=== PATIENT | female | born 1990 | race African-American/Black ===

== ENCOUNTER 2017-03-20 20:19 | Emergency (ER) | payer OTHER ==
[~2017-03-20] VITALS: Ht 154.9 cm; Wt 90.7 kg
[2017-03-20 20:30] VITALS: BP 129/90
[2017-03-20] MEDS ORDERED: PRED50TA PO (20:50)
[2017-03-20] MEDS ORDERED: AMOX875T PO (20:50)
--- NOTE | 2017-03-20 20:50 | PHYS DOC ---
Past Medical History Past Medical History: Migraines Past Surgical History: No Surgical History Alcohol Use: None Drug Use: None Adult General Chief Complaint Chief Complaint: SORE THROAT HPI HPI Patient is a 27 year old female who presents with sore throat and bilateral ear pain for 3 days. Patient denies any fever coughing or congestion. Review of Systems Review of Systems Constitutional: See history of present illness Eyes: Denies change in visual acuity, redness, or eye pain [] HENT: sore throat and bilateral ear pain Respiratory: Denies cough or shortness of breath [] Cardiovascular: No additional information not addressed in HPI [] GI: Denies abdominal pain, nausea, vomiting, bloody stools or diarrhea [] : Denies dysuria or hematuria [] Musculoskeletal: Denies back pain or joint pain [] Integument: Denies rash or skin lesions [] Neurologic: Denies headache, focal weakness or sensory changes [] Endocrine: Denies polyuria or polydipsia [] Allergies Allergies Allergies Coded Allergies Type Severity Reaction Last Updated Verified No Known Drug Allergies 12/14/13 No Physical Exam Physical Exam Constitutional: Well developed, well nourished, no acute distress, non-toxic appearance. [] HENT: Normocephalic, atraumatic, bilateral external ears normal, oropharynx moist, no oral exudates, nose normal. [] +2 tonsils with mild erythema and mild exudate bilaterally, midline uvula. +2 anterior cervical adenopathy Bilateral TM are mildly injected. Eyes: PERRLA, EOMI, conjunctiva normal, no discharge. [] Neck: Normal range of motion, no tenderness, supple, no stridor. [] Cardiovascular:Heart rate regular rhythm, no murmur [] Lungs & Thorax: Bilateral breath sounds clear to auscultation [] Abdomen: Bowel sounds normal, soft, no tenderness, no masses, no pulsatile masses. [] Skin: Warm, dry, no erythema, no rash. [] Back: No tenderness, no CVA tenderness. [] Extremities: No tenderness, no cyanosis, no clubbing, ROM intact, no edema. [] Neurologic: Alert and oriented X 3, normal motor function, normal sensory function, no focal deficits noted. [] Psychologic: Affect normal, judgement normal, mood normal. [] Current Patient Data Vital Signs Vital Signs Date Time Temp Pulse Resp B/P (MAP) Pulse Ox O2 Delivery O2 Flow Rate FiO2 03/20/17 20:30 98.7 82 16 99 Room Air 98.7 EKG EKG [] Radiology/Procedures Radiology/Procedures [] Course & Med Decision Making Course & Med Decision Making Pertinent Labs and Imaging studies reviewed. (See chart for details) Patient has bilateral otitis media and tonsillitis. Discharged with amoxicillin. Tylenol/Motrin for pain or fever. Dragon Disclaimer Dragon Disclaimer This electronic medical record was generated, in whole or in part, using a voice recognition dictation system. Departure Departure Impression: Primary Impression: Acute tonsillitis Additional Impression: Otitis media Disposition: HOME, SELF-CARE Condition: STABLE Referrals: NON,STAFF (PCP) Follow-up with your doctor in 1-2 weeks Patient Instructions: Otitis Media, Adult, Tonsillitis, [id number] Additional Instructions: You were seen for otitis media and tonsillitis. Ensure you complete your antibiotics. We also sent you home with prednisone, it's going to help with the swelling and inflammation. Take Tylenol every 4 hours and Motrin every 6 hours as needed for pain or fever. Follow-up with your doctor in one week. Come back to the ED if symptoms worsen. Scripts Prednisone (PREDNISONE) 50 Mg Tablet 1 TAB PO DAILY, #5 TAB Prov: JACQUELINE ROGERS APRN 03/20/17 Amoxicillin (AMOXICILLIN) 875 Mg Tablet 1 TAB PO BID, #20 TAB Prov: JACQUELINE ROGERS [employer]PER[employer] 03/20/17 Problem Qualifiers Primary Impression: Acute tonsillitis Pharyngitis/tonsillitis etiology: unspecified etiology Qualified Codes: J03.90 - Acute tonsillitis, unspecified Additional Impression: Otitis media Otitis media type: other nonsuppurative Chronicity: acute Laterality: bilateral Recurrence: not specified as recurrent Qualified Codes: H65.193 - Other acute nonsuppurative otitis media, bilateral JACQUELINE ROGERS [employer]PER[employer] Mar 20, 2017 20:50
== END 2017-03-20 20:53 | disposition home or self-care (01) ==
LOC: ER 20:19
DX: J03.90 Acute tonsillitis, unspecified (principal); H65.193 Other acute nonsuppurative otitis media, bilateral; G43.909 Migraine, unspecified, not intractable, without status migrainosus
CPT/HCPCS: 99283

== ENCOUNTER 2017-08-28 13:25 | Emergency (ER) | payer OTHER ==
[2017-08-28 13:52] LABS: POC GLUCOSE 90 mg/dL (70-99)
[2017-08-28 14:06] LABS: BILIRUBIN,URINE NEGATIVE (NEG); GLUCOSE,URINE NEGATIVE (NEG); NITRITE,URINE NEGATIVE (NEG); PROTEIN,URINE NEGATIVE (NEG-TRACE); UROBILINOGEN,URINE 0.2 mg/dL (0.2 mg/dL)
[2017-08-28 14:16] LABS: BACTERIA,URINE FEW /HPF (0-FEW); RBC,URINE 0 /HPF (0-2); SQUAMOUS EPITHELIAL CELL,UR FEW /LPF; WBC,URINE 0 /HPF (0-4)
[2017-08-28 15:24] LABS: NEG OBC UR NEG; POS OBC UR POS
== END 2017-08-28 15:45 | disposition home or self-care (01) ==
LOC: ER 13:25
DX: R42 Dizziness and giddiness (principal); F41.9 Anxiety disorder, unspecified; G43.909 Migraine, unspecified, not intractable, without status migrainosus; Z79.3 Long term (current) use of hormonal contraceptives
CPT/HCPCS: 81001; 81025; 82962; 93005; 99285-25